=== PATIENT | female | born 1945 | race Caucasian/White ===

== ENCOUNTER → 2017-12-16 | Outpatient (REF) | payer MEDICARE, OTHER ==
[2017-12-16 10:44] LABS: PLATELET COUNT, AUTOMATED 250 K/uL (150-450)
== END ==
PROVIDERS: ATTEND Nurse Practitioner Family
DX: R06.02 Shortness of breath (principal); R07.9 Chest pain, unspecified; R07.2 Precordial pain
CPT/HCPCS: 82040; 82247; 82310; 82374; 82435; 82565; 82947; 84075; 84132; 84155; 84295; 84450; 84460; 84484; 84520; 85025; 85379

== ENCOUNTER → 2019-03-15 | Outpatient (REF) | payer MEDICARE, OTHER ==
[2019-03-15 17:53] LABS: PLATELET COUNT, AUTOMATED 267 K/uL (150-450)
== END ==
PROVIDERS: ATTEND Nurse Practitioner Family
DX: S09.90XA Unspecified injury of head, initial encounter (principal); W19.XXXA Unspecified fall, initial encounter
CPT/HCPCS: 82040; 82247; 82310; 82374; 82435; 82565; 82947; 84075; 84132; 84155; 84295; 84450; 84460; 84484; 84520; 85025

== ENCOUNTER → 2019-03-15 | Outpatient (CLI) | payer MEDICARE, OTHER ==
--- NOTE | 2019-03-15 18:03 | RADIOLOGY IMAGING REPORT ---
[place]AC[place] [facility] [place] NAME: France Tran : 1945 MR: [id number] V: [id number] EXAM DATE: ORDERING PHYSICIAN: WINNIE DOWNING TECHNOLOGIST: Location: [facility] - [place] Patient: France Tran : 1945 Visit/Account:[id number] Date of Sevice: 03/15/2019 CT Head without contrast Indication: Fall and hit left side of head. Comparison: None available Technique: Axial CT images were obtained through the brain from the skull base to the vertex without administration of IV contrast. Reformatted coronal and sagittal images were also obtained. One of the following dose optimization techniques was utilized in the performance of this exam: autom ated exposure control; adjustment of the mA and/or kV according to the patient's size; or use of an i terative reconstruction technique. Specific details can be referenced in the facility's radiology CT exam operational policy. Findings: No evidence of mass, mass effect, or midline shift. No acute intracranial hemorrhage or acute territorial infarction. No extra-axial fluid collection or hydrocephalus. Mild age-related cerebral atrophy. Minimal perive ntricular white matter ischemic changes consistent small vessel disease. Chapman/white matter different iation appears normal. Mild bilateral internal carotid artery calcifications. Bony structures show no fractures or lesions. The visualized paranasal sinuses and mastoid air cells are clear. IMPRESSION: 1. Mild senescent changes without acute abnormality. Report Dictated By: Tony Guy at 03/15/2019 5:52 PM Report E-Signed By: Tony Guy at 03/15/2019 5:57 PM WSN:[id number]
== END ==
LOC: CT 17:20
PROVIDERS: ATTEND Nurse Practitioner Family
DX: S09.90XA Unspecified injury of head, initial encounter (principal); W19.XXXA Unspecified fall, initial encounter
CPT/HCPCS: 70450